=== PATIENT | female | born 1990 | race American Indian/Alaskan Native ===

== ENCOUNTER 2018-01-12 12:39 | Emergency (ER) | payer OTHER ==
[2018-01-12 12:43] VITALS: BP 120/64; PULSE 75; RESP 20; TEMP 98.2; O2SAT 100
[2018-01-12] MEDS ORDERED: Tdap Vaccine 0.5 ml Vial (10-64 yrs) IM ONE ×2 (12:51→13:01)
--- NOTE | 2018-01-12 12:52 | ED PDOC ---
HPI: Skin/Bite Injury Time Seen by Provider: 01/12/18 12:42 Chief Complaint (Nursing): Abnormal Skin Integrity Chief Complaint (Provider): Cut, left index finger - [employer] at work History Per: Patient History/Exam Limitations: no limitations Onset/Duration Of Symptoms: Mins Current Symptoms Are (Timing): Still Present Severity: None Additional Complaint(s): 27 yo female with unknown tetanus presents with laceration of the left index finger. Pt cut finger with knife at [id number] where she works. PT with dressing in placed due ti initial bleeding. Past Medical History Reviewed: Historical Data, Nursing Documentation, Vital Signs Vital Signs: Last Vital Signs Temp 98.2 F 01/12/18 12:43 Pulse 75 01/12/18 12:43 Resp 20 01/12/18 12:43 BP 120/64 01/12/18 12:43 Pulse Ox 100 01/12/18 12:43 - Medical History PMH: No Chronic Diseases - Surgical History Surgical History: No Surg Hx - Family History Family History: States: No Known Family Hx - Living Arrangements Living Arrangements: With Family - Social History Current smoker - smoking cessation education provided: No - Allergies Allergies/Adverse Reactions: Allergies Allergy/AdvReac Type Severity Reaction Status Date / Time pineapple Allergy ITCHING Verified 01/12/18 12:43 Review of Systems ROS Statement: Except As Marked, All Systems Reviewed And Found Negative Constitutional: Negative for: Fever, Chills Skin: Positive for: Other Physical Exam - Reviewed Nursing Documentation Reviewed: Yes Vital Signs Reviewed: Yes - Physical Exam Appears: Positive for: Well, Non-toxic, No Acute Distress Head Exam: Positive for: ATRAUMATIC, NORMAL INSPECTION, NORMOCEPHALIC Skin: Positive for: Warm. Negative for: Normal Color (1 cm laceration without bleeding, no blood seen in laceration) Eye Exam: Positive for: Normal appearance ENT: Positive for: Normal ENT Inspection Neck: Positive for: Normal, Painless ROM Respiratory: Negative for: Accessory Muscle Use, Respiratory Distress Back: Positive for: Normal Inspection Extremity: Positive for: Normal ROM Neurologic/Psych: Positive for: Alert - ECG O2 Sat by Pulse Oximetry: 100 Medical Decision Making Medical Decision Making: Wound irrigated. Antibiotic ointment and dressing applied. Tetanus given. Disposition - Clinical Impression Clinical Impression: Finger laceration, Tetanus toxoid vaccination administered at current visit - Disposition Disposition: Routine/Home Disposition Time: 12:54 Condition: STABLE Instructions: Skin Abrasions (DC)
== END 2018-01-12 13:22 | disposition home or self-care (01) ==
LOC: H.ER 12:39
DX: S61.211A Laceration without foreign body of left index finger without damage to nail, initial encounter (principal); W26.0XXA Contact with knife, initial encounter; Y99.0 Civilian activity done for income or pay